=== PATIENT | female | born 1960 | race Caucasian/White ===

== ENCOUNTER 2022-09-24 09:55 | Outpatient (CLI) | payer BC, SELFPAY ==
--- NOTE | 2022-09-24 07:27 | PM.ANHP ---
HPI - Pre-Anesthesia History of Present Illness Time Seen by Provider: 10:47 Date Seen: 09/24/22 Date of service: 09/24/22 Reason for visit: pre colonoscopy Source: patient and old records reviewed Review of Systems Status of ROS Reports: 10 or more systems reviewed and unremarkable except as noted in History and below [facility] Medical History (Updated 09/24/22 @ 10:51 by Derrick Jay MD) Tobacco abuse ?Z72.0 - Tobacco use (ICD-10) History of intussusception ?Z87.19 - Personal history of other diseases of the digestive system (ICD-10) Hypertension ?I10 - Essential (primary) hypertension (ICD-10) Hypercholesteremia ?E78.00 - Pure hypercholesterolemia, unspecified (ICD-10) LVH (left ventricular hypertrophy) ?I51.7 - Cardiomegaly (ICD-10) Meds Home Medications and Allergies Home Medications Medication Instructions Recorded Confirmed Type aspirin 81 mg chewable tablet 81 mg PO DAILY 09/24/22 09/24/22 History (Aspirin Childrens) atorvastatin 20 mg tablet 20 mg PO DAILY cholesterol 09/24/22 09/24/22 History lisinopril 20 1 tab PO DAILY blood pressure 09/24/22 09/24/22 History mg-hydrochlorothiazide 12.5 mg tablet metoprolol succinate 50 mg 50 mg PO DAILY blood pressure 09/24/22 09/24/22 History tablet,extended release 24 hr Exam Const Documenting provider has reviewed patient's vital signs: yes Common normals: no apparent distress, oriented x3, healthy appearing, alert and well nourished General appearance: cooperative and comfortable Orientation/consciousness: Yes awake HENMN Common normals: normocephalic Head and scalp: normocephalic Neck & C-Spine Common normals: full ROM Chest Chest: symmetrical chest wall rise Resp Common normals: normal respiratory effort, no retractions, no use of accessory muscles and clear to auscultation bilaterally Auscultation: clear to auscultation bilaterally Cardio Common normals: regular rate, regular rhythm, S1 normal heart sound, S2 normal heart sound and no murmurs Rate: regular rate Rhythm: regular rhythm Heart sounds: S1 normal and S2 normal Neuro Common normals: oriented x3 Sensorium/orientation: awake and alert Assessment and Plan Assessment and plan (1) Colonoscopy planned: Status: Acute Plan no contraindication to colonoscopy
--- NOTE | 2022-09-24 07:27 | W.ANESCHARGE ---
Anesthesia Charges Start Date/Time Anesthesia Start Date: 09/24/22 Anesthesia Start Time: 11:06 Stop Date/Time Anesthesia Stop Date: 09/24/22 Anesthesia Stop Time: 11:27
--- NOTE | 2022-09-24 11:30 | W.ANESCHARGE ---
Anesthesia Charges Start Date/Time Anesthesia Start Date: 09/24/22 Anesthesia Start Time: 11:06 Stop Date/Time Anesthesia Stop Date: 09/24/22 Anesthesia Stop Time: 11:27
== END 2022-09-24 09:56 | disposition home or self-care (01) ==
LOC: OP CLINIC 09:58
PROVIDERS: PCP Family Medicine; Visit Provider Internal Medicine
DX: Z12.11 Encounter for screening for malignant neoplasm of colon (principal); K64.8 Other hemorrhoids; K57.30 Diverticulosis of large intestine without perforation or abscess without bleeding; Z86.010 Personal history of colon polyps
CPT/HCPCS: 45378; 811; 812; J2704